=== PATIENT | male | born 1985 | race Caucasian/White ===

== ENCOUNTER 2022-12-10 21:53 | Emergency (ER) | payer OTHER ==
[~2022-12-10] VITALS: Ht 182.9 cm; Wt 93.0 kg
[2022-12-11 00:42] VITALS: BP 132/81
[2022-12-11] MEDS ORDERED: TDAP [DIPH/PERTUSSIS/TET] 0.5 ML VIAL IM ONE ×2 (00:49→01:00)
--- NOTE | 2022-12-11 00:59 | NUR ---
Patient discharged to home in stable condition. Written and verbal after care instructions given. Patient verbalizes understanding of instruction.
== END 2022-12-11 00:59 | disposition home or self-care (01) ==
LOC: ER 22:06
DX: S61.411A Laceration without foreign body of right hand, initial encounter (principal); Z88.2 Allergy status to sulfonamides; W45.8XXA Other foreign body or object entering through skin, initial encounter; Y93.89 Activity, other specified; Y92.89 Other specified places as the place of occurrence of the external cause; Y99.8 Other external cause status
CPT/HCPCS: 90715